=== PATIENT | female | born 1990 | race Caucasian/White ===

== ENCOUNTER 2025-05-02 15:56 | Emergency (ER) | payer OTHER, SELFPAY ==
--- OUTSIDE RECORDS SUMMARY | 2025-01-28 10:30 | XMS_ITS ---
Author Organization [facility] Address [address] [place] [address] Care Team Providers Care Flaking Roll Operator Name Role Phone Roxana Rangel Primary Care Provider [phone] Trina Francois [phone] REASON FOR VISIT APRO Encounters Encounter Location Date Provider Diagnosis [facility] [address] [place] [address] 01/28/2025 Trina Alessandro Plan Of Treatment Next Appt Details Provider Name:Rose Mcneill, 08/16/2025 03:15:00 PM, [address] [place] [address], [phone], Progress Notes * NICKO CENTENO LDOB:[birth year] (34 yo F)Acc No.[id number]:01/28/2025 Patient: NICKO RAYMOND Provider: Papo Francois :1990 A ge:34 Y S ex:Female Date:01/28/2025 Address:[address] [id number] Pcp:Roxana Walton Subjective: * Chief Complaints: * 1 . APRO. * Medical History: Objective: * Vitals: Assessment: Plan: * Treatment: * Images: * Electronic signature of Elia Francois on 05/02/2025 at 04:07 PM EDT Sign off status: Pending * Provider: Papo Francois Date: 0 01/28/2025 Generated for Davide villarreal/Harleen/Onelia on: 0 05/02/2025 04:07 PM EDT
--- OUTSIDE RECORDS SUMMARY | 2025-04-21 08:30 | XMS_ITS | Encounter Summary ---
Author Organization [facility] Address [address] [place] [address] Care Team Providers Care Financial Compliance Manager Name Role Phone DiazNinfa Mackenzie ARREGUIN Primary Care Provider + [phone] Sintia Gilbert Unavailable Unavailable Susie Kohli PA-C Unavailable [phone] Steve Chawla MD Unavailable [phone] Source Comments In the event this information is protected by the Federal Confidentiality of Alcohol and Drug AbusePatient Records regulations: The Federal rules restrict any use of the information to criminally investigate or prosecute any alcohol or drug abuse patient.[facility] Reason for Referral * MRI/CT (Routine) - Pending Review Specialty Diagnoses / Procedures Referred By Contac t Referred To Contact MR IMAGING Diagnoses History of lymphoma Procedures MRI PEL ENTEROG WO/W IVCON MRI PELVIS W/O & W/CONTRAST MATERIAL Steve Chawla MD [address] [place] [address] [place] [address] Phone: tel: fax: [place] [address] Referral ID Status Reason Start Date Expiration Date Visits Requested Visits Authorized [id number] Pending Review Auto-Generat ed Referral 05/21/2025 05/21/2026 1 1 * MRI/CT (Routine) - Pending Review Specialty Diagnoses / Procedures Referred By Rogelio moctezuma Referred To Contact MR IMAGING Diagnoses History of lymphoma Procedures MRI ABD ENTEROG WO/W IVCON MRI ABDOMEN W/O & W/CONTRAST MATERIAL MRI PELVIS W/O & W/CONTRAST MATERIAL Steve Chawla MD [address] [facility] [place] [address] Phone: tel: fax: [place] [address] Referral ID Status Reason Start Date Expiration Date Visits Requested Visits Authorized [id number] Pending Review Auto-Generat ed Referral 05/21/2025 05/21/2026 1 1 * MRI/CT (Routine) - Pending Review Specialty Diagnoses / Procedures Referred By Rogelio moctezuma Referred To Contact CT IMAGING Diagnoses History of lymphoma Procedures CT CHEST WO IVCON DIAGNOSTIC COMPUTED TOMOGRAPHY THORAX W/O CNTRST Steve Chawla MD [address] [facility] [place] [address] Phone: tel: fax: [place] [address] Referral ID Status Reason Start Date Expiration Date Visits Requested Visits Authorized [id number] Pending Review Auto-Generat ed Referral 07/22/2025 05/21/2026 1 1 Reason for Visit * Reason Comments History of lymphoma Encounter Details Date Type Department Care Team (Latest Contact Info) Description 04/21/2025 8:30 AM EDT Visit (SP) Office Hematology/Oncology [address] [place] [address] Steve Chawla MD [address] [place] [address] History of lymphoma (Primary Dx) Social History Tobacco Use Types Packs/Day Years Used Date Smoking Tobacco: Former Cigarettes Passive Smoke Exposure: Past Smokeless Tobacco: Never Alcohol Use Standard Drinks/Week Comments Not Currently 0 (1 standard drink = 0.6 oz pur e alcohol) PHQ-2 Answer Date Recorded PHQ-2 score 0 03/17/2024 Area Deprivation Index Answer Date Tyson rded National Score (1-100), lower number is lower ri sk 80 03/18/2023 State Score (1-10), lower number is lower risk 7 03/18/2023 Data from: https://www.neighborhoodatlas.[facility]/. Last address used for calculation [address] 03/18/2023 Comments No Sex and Gender Information Value Date Recorded Sex Assigned at Not on file Legal Sex Female 4:43 PM EST Gender Identity Not on file Sexual Orientation Not on file documented as of this encounter Last Filed Vital Signs Vital Sign Reading Time Taken Comments Blood Pressure 126/83 04/21/2025 8:21 AM EDT Pulse 66 04/21/2025 8:21 AM EDT Temperature 36.3 C (97.4 F) 04/21/2025 8:21 AM EDT Respiratory Rate 16 04/21/2025 8:21 AM EDT Oxygen Saturation 98% 04/21/2025 8:21 AM EDT Inhaled Oxygen Concentration - - Weight 105.7 kg (233 lb 0.4 oz) 04/21/2025 8:21 AM EDT Height - - Body Mass Index 39.98 03/18/2025 8:44 AM EDT documented in this encounter Patient Instructions * Patient Instructions* Steve Chawla MD - 04/21/2025 8:[address] Chest Ordered MR enterography F/u with METROLOGY MANAGER F/u in 3 months documented in this encounter Progress Notes * Steve Chawla MD - 04/21/2025 8:30 AM EDT Images from the original note were not included. PATIENT NAME: Estefany [facility] NO.: [id number] ATTENDING PHYSICIAN: Steve Chawla MD DATE OF SERVICE: 04/21/25 Some of the elements of this note have been copied from my previous progress note dated 09/29/24. All the information has been reviewed carefully Diagnosis: Stage 2 ALK positive - ALCL Treatment History: ECHO 11/2022: 2. BV-CHP- 12/24/2022-04/08/2023 ( 6 cycles) HPI: Estefany Wu is a 33 year old year old female here for follow up. Doing well and denies any new complaints Visit 09/28/24: - Doing well - C/o lymphedema in Left LE - C/o URTI. - She has 1 child. 04/21/25: - CT chest (04/14/25)- No significant thoracic adenopathy. 2. New 7 mm nodular density in the posterior right upper lobe of the lungs. This is nonspecific. Would advise a short-term 3 month follow-up chest CT without contrast to reassess the nodule - CT A/P (04/14/25)- No significant abdominal or pelvic lymphadenopathy. No splenomegaly or splenic lesion. 2. Intrauterine device is present. This is new when compared to the prior exam. The crossbars appear directed towards the lower uterine segment. This raises the possibility of malposition of the intrauterine device. Additionally, within the left adnexa, there is a nonspecific 3.6 x 2.7 cm septated cyst. Would advise further evaluation with pelvic ultrasound at this time to assess for the position of the intrauterine device and also to better assess the left adnexal cystic lesion. Would also advise gynecology referral given the suspected position of the intrauterine device. 3. Along the distal and terminal ileum, there is an 8 cm long contiguous segment of small bowel bowel which demonstrates questionable mild mucosal thickening mucosal hyperenhancement. The possibility of this being secondary to enteritis or other causes of mild mucosal thickening cannot be excluded. Would advise further evaluation with MR enterography - Doing well - Sees a sales and marketing vice president. - Works as a direct support professional caregiver for seniors. 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, unspecified site (HCC) Migraine PMDD (premenstrual dysphoric disorder) TMJ disorder Social History Tobacco Use Smoking status: Former Types: Cigarettes Passive exposure: Past Smokeless tobacco: Never Vaping Use Vaping status: Former Substances: Nicotine, Flavoring Devices: Refillable tank Substance Use Topics Alcohol use: Not Currently Drug use: Yes Types: Marijuana FAMILY HISTORY Problem Relation Age of Onset Thyroid Mother Hypertension Mother Diabetes Father Pancreatitis Father Hypertension Maternal Grandmother Hypertension Maternal Grandfather Breast Cancer Paternal Grandmother Hypertension Paternal Grandfather Diabetes Paternal Grandfather Cancer Paternal Grandfather Pancreatic Cancer Paternal great-grandmother Past medical, social and family history reviewed without any changes. REVIEW OF SYSTEMS GENERAL: No weight loss, malaise or fevers. No night sweats. HEENT: Negative for headaches, No changes in hearing or vision, no nose bleeds or other nasal problems. RESPIRATORY: Negative for cough, wheezing and shortness of breath CARDIOVASCULAR: Negative for chest pain, leg swelling and palpitations GI: Negative for abdominal discomfort, blood in stools or black stools and change in bowel habits : Negative for dysuria, frequency and incontinence MUSCULOSKELETAL: Negative for joint pain or swelling, back pain, and muscle pain. SKIN: Negative for lesions, rash, and itching. HEMATOLOGY/LYMPHOLOGY Negative for prolonged bleeding, bruising easily, and swollen nodes. NEURO: Negative for numbness or tingling of hands/feet. No weakness. PHYSICAL EXAMINATION: BP 126/83 Pulse 66 Temp (Src) 97.4 (Temporal) Resp 16 Wt 233 lb 0.4 oz (105.7kg) SpO2 98% LMP 11/24/2024 Wt 89.8 kg (198 lb) BMI 33.99 kg/m2 Last 3 Encounter Wt Readings: Date: Wt: 12/17/2022 89.8 kg (198 lb) 12/05/2022 92.9 kg (204 lb 12.8 oz) General appearance:ECOG PERFORMANCE STATUS: 1- Restricted in physically strenuous activity. Carries out light duty. Patient in NAD. Skin: Skin color, texture, turgor normal. No rashes or lesions. Eyes: Anicteric sclera. Pupils are equally round and reactive to light. Extraocular movements are intact. Lymph Nodes: No cervical, supraclavicular, axillary or inguinal adenopathy. Oropharynx: Lips, mucosa, and tongue normal. Back: No pain to percussion. Negative SLR test Lungs clear to auscultation, No wheezing or rhonchi Heart: RRR without murmur, gallop, or rubs. Abdomen soft, non-tender. No masses, organomegaly Extremities: No deformities. No edema Neuro: Gait and speech normal. Reflexes normal and symmetric. Muscular strength intact. Sensation grossly intact. Rectal: Deferred : Deferred LABS: Glucose (mg/dL) Date Value 04/14/2025 90 Potassium (mmol/L) Date Value 04/14/2025 4.3 Sodium (mmol/L) Date Value 04/14/2025 138 Chloride (mmol/L) Date Value 04/14/2025 105 CO2 (mmol/L) Date Value 04/14/2025 20 Creatinine (mg/dL) Date Value 04/14/2025 0.60 BUN (mg/dL) Date Value 04/14/2025 10 Anion Gap (mmol/L) Date Value 04/14/2025 13 Calcium, Total (mg/dL) Date Value 04/14/2025 9.1 Protein, Total (g/dL) Date Value 04/14/2025 6.7 Albumin (g/dL) Date Value 04/14/2025 4.1 Bilirubin, Total (mg/dL) Date Value 04/14/2025 0.5 Alkaline Phosphatase (U/L) Date Value 04/14/2025 72 AST (U/L) Date Value 04/14/2025 24 ALT (U/L) Date Value 04/14/2025 26 WBC Date Value Ref Range Status 04/14/2025 5.89 3.70 - 11.00 k/uL Final RBC Date Value Ref Range Status 04/14/2025 4.81 3.90 - 5.20 m/uL Final Hemoglobin Date Value Ref Range Status 04/14/2025 13.6 11.5 - 15.5 g/dL Final Hematocrit Date Value Ref Range Status 04/14/2025 41.1 36.0 - 46.0 % Final MCV Date Value Ref Range Status 04/14/2025 85.4 80.0 - 100.0 fL Final MCH Date Value Ref Range Status 04/14/2025 28.3 26.0 - 34.0 pg Final MCHC Date Value Ref Range Status 04/14/2025 33.1 30.5 - 36.0 g/dL Final RDW-CV Date Value Ref Range Status 04/14/2025 13.8 11.5 - 15.0 % Final Platelet Count Date Value Ref Range Status 04/14/2025 232 150 - 400 k/uL Final MPV Date Value Ref Range Status 04/14/2025 11.4 9.0 - 12.7 fL Final Abs Neut Date Value Ref Range Status 04/14/2025 3.74 1.45 - 7.50 k/uL Final Lymphocytes % Date Value Ref Range Status 04/14/2025 25.3 % Final Abs Lymph Date Value Ref Range Status 04/14/2025 1.49 1.00 - 4.00 k/uL Final Monocytes % Date Value Ref Range Status 04/14/2025 7.3 % Final Abs Fillmore Date Value Ref Range Status 04/14/2025 0.43 <0.87 k/uL Final Eosin% Date Value Ref Range Status 12/31/2022 14.0 % Final Abs Eosin Date Value Ref Range Status 04/14/2025 0.17 <0.46 k/uL Final Basophils % Date Value Ref Range Status 04/14/2025 0.7 % Final Abs Baso Date Value Ref Range Status 04/14/2025 0.04 <0.11 k/uL Final PATH: LN Biopsy 11/2022: A. Left inguinal lymph nodes #1 and #2, excisional biopsy (Submitted parts A and B): - Anaplastic large cell lymphoma, ALK positive - Small, atypical B-cell population identified by flow cytometry only - See comment Diagnosis Comment The patient is a 32-year-old female presenting with a left inguinal mass. Histologic sections demonstrate markedly enlarged lymph node with a lymphoma infiltrate with predominantly intra-sinusoidal pattern. The neoplastic cells are large with ovoid/round to irregular nuclei with dispersed chromatin and prominent often multiple nucleoli. A subset show multiple nucleoli orhorseshoe- shaped nuclei. They have increased, eosinophilic cytoplasm. Focal areas of residual lymphoid architecture are appreciated with reactive germinal centers. Submitted immunohistochemical stains are reviewed. The atypical cells are positive for CD30, CD45 and Ki-67. They are negative for AE1/AE3 cytokeratin, BCL2, BCL6, CD3, CD5, CD10, CD20, cyclin D1, HMB45, MART1, S100 and PAX5. The stains for CD21 and CD23 highlight background residual dendritic meshworks. Additional immunohistochemical stains have been performed at [facility] with appropriately staining controls. The neoplastic cells are positive for ALK with nuclear and cytoplasmic pattern and for MUM1. Chromogenic in-situ hybridization with probes for Gurpreet-Chatman virus (EBV)-encoded small RNA (TESSA) is negative. Per report, flow cytometry in part A demonstrated a small population of atypical B cells with a kappa light chain skew, suspicious for a B-cell lymphoproliferative disorder. These B cells were negative for CD5, CD10 and CD11c. However, the specimen it was limited by decreased viability (less than 80 %). 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 The significance of the abnormal population identified by flow cytometry only is unclear, it may represent a reactive process. Correlation with the clinical and radiologic findings is recommended. Imaging: PET 12/2022: 1. HEAD and NECK: No evidence of focal uptake to suggest FDG avid neoplastic process.. 2. CHEST: No evidence of focal uptake to suggest FDG avid neoplastic process.. 3. ABDOMEN/PELVIS: FDG avid retroperitoneal and pelvic lymphadenopathy is consistent with lymphomatous involvement. 4. EXTREMITIES/SKELETON: No evidence of focal uptake to suggest FDG avid neoplastic process.. *Deauville Criteria Score: 5 PET Scan 03/2023: 1. Neck: No suspicious hypermetabolic foci 2. Chest: No evidence of FDG avid neoplastic process 3. Abdomen and pelvis: No evidence of FDG avid neoplastic process 4. Skeleton: Mild diffuse marrow uptake likely posttherapy effect. Deauville criteria score: 1 PET Scan 05/2023: Head and Neck: * No evidence of FDG avid neoplastic process Chest: * No evidence of FDG avid neoplastic process Abdomen and pelvis: * No new/worsening FDG avid lymphadenopathy * New diffuse uptake in the gastric fundus is likely physiologic or due to gastritis, although lymphomatous/neoplastic involvement is not entirely excluded. Further evaluation with EGD and/or follow-up imaging, as clinically indicated. Musculoskeletal: * No neoplastic hypermetabolic lesions CT Scan of the Chest and Abdomen and Pelvis 08/2023: 1. 5 mm noncalcified nodule within the left lower lobe, not clearly appreciated on prior study, however, this may be on the basis of differences in technique. Correlation with continued follow-up examinations is recommended. 2. No substantial intrathoracic adenopathy is identified. 1. Several mildly prominent right lower quadrant mesenteric lymph nodes are identified, more conspicuous when compared to the prior PET/CT examination of 05/14/2023. Correlation with continued follow-up examinations is recommended. 2. Minimally prominent left external iliac lymph node, decreased in size from the prior study. CT Scan of the Chest and Abdomen and Pelvis 03/2024: No thoracic lymphadenopathy by size criteria. No lymphadenopathy in the abdomen or pelvis by size criteria. Assessment and Plan: 1. History of lymphoma - ICD9: V10.79, ICD10: Z85.72 Estefany Wu is a 33 year old year old female here for follow up. Stage II, Low IPI, ALK positive ALCL- Discussed that based on the ECHELON-2 trial BV-CHP is the standard of care. Imaging after 4th cycle in CR, completed 6 cycles of therapy 04/08/2023 and PET 05/2023with CR she has diffuse gastric uptake which is new and not likley related to lymphoma, however shehad an EGD 05/2023 with minimal possible gastritis otherwise negative. CT 03/2024 without progression - CT chest on 04/14/25 showed New 7 mm nodular density in the posterior right upper lobe of the lungs. This is nonspecific. Would advise a short-term 3 month follow-up chest CT without contrast to reassess the nodule. Ordered repeat CT chest. - CT A/P on 04/14/25 showed Along the distal and terminal ileum, there is an 8 cm long contiguous segment of small bowel bowel which demonstrates questionable mild mucosal thickening mucosal hyperenhancement. The possibility of this being secondary to enteritis or other causes of mild mucosal thickening cannot be excluded. Would advise further evaluation with MR enterography. Ordered MR enterography. - Advised her to f/u with METROLOGY MANAGER for pelvic USG. - Recent blood work is unremarkable. - F/u with PCP and other consultants. F/u in 3 months Thank you for the kind referral. If there are any questions and or concerns please do not hesitate to contact me at [phone]. Steve Chawla MD Hematology/Medical Oncology [facility] spent a total of 30 minutes on the date of the service which included preparing to see the patient, [id number] patient care, completing clinical documentation, obtaining and/or reviewing separately obtained history, counseling and educating the patient/family/caregiver, ordering medications, addie ts, or procedures, and communicating with other HCPs (not separately reported) CC: MD Ninfa Garcia, DO documented in this encounter Plan of Treatment Upcoming Encounters Date Type Department Care Team (Late st Contact Info) Description 06/21/2025 9:00 AM EDT Appointment MRI Q [address] [address] MRI ABD ENTEROG WO/W IVCON 06/21/2025 10:30 AM EDT Appointment MRI Q [address] [address] MRI ABD ENTEROG WO/W IVCON 07/14/2025 7:45 AM EDT Appointment Radiology Pet CT [address] [place] [address] Ct Chest without contrast 07/19/2025 9:30 AM EDT Visit (SP) Office Hematology/Oncolog y [address] [place] [address] Steve Chawla MD [address] [facility] [place] [place] [address] 3 month follow up 03/31/2026 10:00 AM EDT Office Visit CB/Gynecology [address] [place] [address] Sebastien Chan MD [address] [address] annual & pap Scheduled Orders Name Type Priority Associated Diagnoses Orde r Schedule CT CHEST WO IVCON Radiology Routine History of lymphoma Expected: 07/22/2025 (Approximate), Expires: 05/21/2026 MRI ABD ENTEROG WO/W IVCON Radiology Routine History of lymphoma Expected: 05/21/2025 (Approximate), Expires: 05/21/2026 MRI PEL ENTEROG WO/W IVCON Radiology Routine History of lymphoma Expected: 05/21/2025 (Approximate), Expires: 05/21/2026 documented as of this encounter Visit Diagnoses Diagnosis History of lymphoma- Primary Personal history of other lymphatic and hematopoietic neoplasm documented in this encounter Care Teams Financial Compliance Manager Relationship Specialty Start Date End Date Ninfa Diaz DO [place] [address] [facility] [address] [place] [address] PCP - General Family Medicine 12/05/22 Sintia Gilbert LSW Founder & Ceo 12/19/22 Susie Kohli, PA-C [address] [facility] [facility] [place] [address] Physician Saturator Hematology/Oncology 12/23/22 Steve Chawla MD [address] [place] [address] [place] [address] Physician Hematology/Oncology 09/29/24 documented as of this encounter
--- OUTSIDE RECORDS SUMMARY | 2025-05-02 16:07 | XMS_ITS | Encounter Summary ---
Author Organization [facility] Address [address] [place] [address] Care Team Providers Care Agricultural Produce Packer Name Role Phone Ninfa Diaz Primary Care Provider + [phone] Sintia Gilbert Unavailable Unavailable Susie Kohli PA-C Unavailable [phone] Steve Chawla MD Unavailable [phone] Source Comments In the event this information is protected by the Federal Confidentiality of Alcohol and Drug AbusePatient Records regulations: The Federal rules restrict any use of the information to criminally investigate or prosecute any alcohol or drug abuse patient.[facility] Encounter Details Date Type Department Care Team (Late st Contact Info) Description 05/02/2025 Patient Msg CB/Gynecology [address] [place] [address] Sebastien Chan MD [address] [address] Appointment Request Social History Tobacco Use Types Packs/Day Years [...] is lower risk 7 03/18/2023 Data from: https://www.neighborhoodatlas.medicine.[facility]/. Last address used for calculation [address] 03/18/2023 Comments No Sex and Gender Information Value Date Recorded Sex Assigned at Not on file Legal Sex Female 4:43 PM EST Gender Identity Not on file Sexual Orientation Not on file documented as of this encounter Plan of Treatment Upcoming Encounters Date Type Department Care Team ([facility] st Contact Info) Description 06/21/2025 9:00 AM EDT Appointment MRI Q [address] [address] MRI ABD ENTEROG WO/W IVCON 06/21/2025 10:30 AM EDT Appointment MRI Q [address] [address] MRI ABD ENTEROG WO/W IVCON 07/14/2025 7:45 AM EDT Appointment Radiology Pet CT [address] [place] [address] Ct Chest without contrast 07/19/2025 9:30 AM EDT Visit (SP) Office Hematology/Oncolog y [address] [place] [address] Steve Chawla MD [address] [place] [address] 3 month follow up 03/31/2026 10:00 AM EDT Office Visit CB/Gynecology [address] [place] [address] Sebastien Chan MD [address] [facility] [address] [place] [address] annual & pap documented as of this encounter Visit Diagnoses Not on filedocumented in this encounter Care Teams Agricultural Produce Packer Relationship Specialty Start Date End Date Ninfa Diaz DO [facility] [place] [address] PCP - General Family Medicine 12/05/22 Sintia Gilbert LSW Collection Systems Administrator 12/19/22 Susie Kohli PA-C [address] [place] [address] Physician Dog Hair Clipper Hematology/Oncology 12/23/22 Steve Chawla MD [address] [place] [address] Physician Hematology/Oncology 09/29/24 documented as of this encounter
--- OUTSIDE RECORDS SUMMARY | 2025-05-02 16:07 | XMS_ITS | Clinical Summary ---
Author Organization [facility] Address [address] [place], [place] [id number] Care Team Providers Care Ticket Taker Name Role Phone Ninfa Diaz Primary Care Provider + [phone] Sintia Gilbert Unavailable Unavailable Susie Kohli PA-C Unavailable [phone] Steve Chawla MD Unavailable [phone] Allergies Active Allergy Reactions Criticality Noted Date Comments Penicillins Anaphylaxis,Hives,Swelling 11/08/20 22 Medications iv contrast (will be provided with radiology test)Indicatio ns:History of lymphoma CT Chest ABD/PEL-Inject, intravenously, once for 1 dose.No IV access, insert saline lock prior to the beginning of sedation, infusion, injection of imaging exam. Discontinue saline lock post exam. If Pt. has a central line or IVAD, may access for administration according to line specific nursing protocol. Once exam is complete flush line and de-access according to line specific nursing protocol in the CT contrast administration guidelines link. 1 Each 09/29/20 24 Active enteric contrast (will be provided with radiology test)Indicatio ns:History of lymphoma For CT CHESTABD/PEL W IVCON Routine order Administer, As Directed One Time Only, via Oral, Rectal, both Oral and Rectal, Enteric Tube, Stoma or Indwelling Catheter, Enteric Contrast as designated per enteric contrast guidelines 1 Each 09/29/20 24 Active iv contrast (will be provided with radiology test) CT Chest ABD/PEL-Inject, intravenously, once for 1 dose.No IV access, insert saline lock prior to the beginning of sedation, infusion, injection of imaging exam. Discontinue saline lock post exam. If Pt. has a central line or IVAD, may access for administration according to line specific nursing protocol. Once exam is complete flush line and de-access according to line specific nursing protocol in the CT contrast administration guidelines link. 1 each 02/16/20 25 Active enteric contrast (will be provided with radiology test) For CT CHESTABD/PEL W IVCON Routine order Administer, As Directed One Time Only, via Oral, Rectal, both Oral and Rectal, Enteric Tube, Stoma or Indwelling Catheter, Enteric Contrast as designated per enteric contrast guidelines 1 each 02/16/20 25 Active glucagon (GLUCAGEN) 1 mg/mL injection Inject 1 mg intravenously one time only for 1 dose. For MRI Enterography, Inject 1 mg intravenously, as directed. Slow push at the appropriate time during MRI Scan each 04/21/20 Active iv contrast (will be provided with radiology test) MRI Enterography Inject, intravenously, once for 1 dose. No IV access, insert saline lock prior to the beginning of sedation, infusion, injection of imaging exam. Discontinue saline lock post exam. If Pt. has a central line or IVAD, may access for administration according to line specific nursing protocol. Once exam is complete flush line and de-access according to line specific nursing protocol in the MR contrast administration guidelines link. 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 Resolved Problems Problem Noted Date Diagnosed Date Resolved Date Dyspepsia and disorder of function of stomach 05/21/2005/21/2023 Epigastric pain 05/21/2023 05/21/2023 Encounters Date Type Department Care Team Description 05/02/2025 Telephone OB/Gynecology [address] [place] [address] Sebastien Chan MD 05/02/2025 Patient Msg CB/Gynecology [address] [place] [address] Sebastien Chan MD Appointment Request 04/21/2025 8:30 AM EDT Visit (SP) Office Hematology/Oncology [address] [place] [address] [place] [address] Steve Chawla MD History of lymphoma (Primary Dx) 04/21/2025 Travel 04/15/2025 Patient Msg Pulmonary Medicine [id number] Result Notification 04/14/2025 8:10 AM EDT - 04/14/2025 11:59 PM EDT Hospital Encounter Radiology Pet CT [address] [place] [address] [place] [address] History of lymphoma [Z85.72] Discharge Disposition: Home 04/14/2025 Travel 03/18/2025 9:00 AM EDT Office Visit CB/Gynecology [address] [place] [address] [place] [address] Sebastien Chan MD Encounter for gynecological examination (general) (routine) without abnormal findings (Primary Dx); Encounter for routine checking of intrauterine contraceptive device; IUD (intrauterine device) in place; Screen for STD (sexually transmitted disease) 02/15/2025 Telephone Hematology/Oncology [address] [place] [address] [place] [address] Sona Stallings RN Orders 02/04/2025 10:30 AM EDT Office Visit CB/Gynecology [address] [place] [address] [place] [address] Sebastien Chan MD IUD (intrauterine device) in place (Primary Dx); Encounter for routine checking of intrauterine contraceptive device 02/04/2025 Travel from Last 3 Months Family History Medical History Relation Comments Diabetes Father Pancreatitis Father Hypertension Maternal Grandfather Hypertension Maternal Grandmother Hypertension Mother Thyroid Mother Cancer Paternal Grandfather Diabetes Paternal Grandfather Hypertension Paternal Grandfather Breast Cancer Paternal Grandmother Pancreatic Cancer Paternal great-grandmother Relation Status Comments Father Alive Maternal Grandfather Maternal Grandmother Mother Alive Paternal Grandfather Paternal Grandmother Paternal great-grandmother Alive Social History Tobacco Use Types Packs/Day Years [...] is lower risk 7 03/18/2023 Data from: https://www.neighborhoodatlas.medicine.[facility].edu/. Last address used for calculation [address] 03/18/2023 Comments No Sex and Gender Information Value Date Recorded Sex Assigned at Not on file Legal Sex Female 4:43 PM EST Gender Identity Not on file Sexual Orientation Not on file Last Filed Vital Signs Vital Sign Reading Time Taken Comments Blood Pressure 126/83 04/21/2025 8:21 AM EDT Pulse 66 04/21/2025 8:21 AM EDT Temperature 36.3 C (97.4 F) 04/21/2025 8:21 AM EDT Respiratory Rate 16 04/21/2025 8:21 AM EDT Oxygen Saturation 98% 04/21/2025 8:21 AM EDT Inhaled Oxygen Concentration - - Weight 105.7 kg (233 lb 0.4 oz) 04/21/2025 8:21 AM EDT Height 162.6 cm (5' 4.02 ) 03/18/2025 8:44 AM ED T Body Mass Index 39.98 03/18/2025 8:44 AM EDT Plan of Treatment Upcoming Encounters Date Type Department Care Team (Late st Contact Info) Description 06/21/2025 9:00 AM EDT Appointment MRI Q [address] [address] MRI ABD ENTEROG WO/W IVCON 06/21/2025 10:30 AM EDT Appointment MRI Q [address] [address] MRI ABD ENTEROG WO/W IVCON 07/14/2025 7:45 AM EDT Appointment Radiology Pet CT [address] [place] [address] [place] [address] Ct Chest without contrast 07/19/2025 9:30 AM EDT Visit (SP) Office Hematology/Oncolog y [address] [place] [address] Steve Chawla MD [address] [place] [address] 3 month follow up 03/31/2026 10:00 AM EDT Office Visit CB/Gynecology [address] [place] [address] Sebastien Chan MD [address] [facility] [address] [place] [address] annual & pap Health Maintenance Due Date Last Done Comments Covid-19 Vaccine (#1) 1996 Anxiety Screening 2009 Depression Screening 2009 DTaP,Tdap,Td Vaccine (1 - Tdap) 2010 Hepatitis B Vaccine (1 of 3 - 19+ 3-dose series) 05/27 Pneumococcal Vaccine (1 of 2 - PCV) 2010 Shingrix Vaccine (1 of 2) 2010 Influenza Vaccine (Season Ended) 2025 Cervical Cancer Screening 02/24/2027 02/25/2024 HIV Screening Completed 12/17/2022 Hepatitis C Screening Completed 12/17/2022 Procedures Procedure Name Priority Date/Time Associated Diagnosis Comments CT CHEST W IVCON Routine 04/14/2025 9:20 AM EDT History of lymphoma CT ABD/PEL W IVCON Routine 04/14/2025 9: 20 AM EDT History of lymphoma LD LACTATE DEHYDRO Routine 04/14/2025 8: 19 AM EDT History of lymphoma COMPREHENSIVE METABOLIC PANEL Routine 04/14/2025 8:19 AM EDT History of lymphoma CBC + DIFF Routine 04/14/2025 8:19 AM EDT History of lymphoma GONORRHEA/CHLAMYDIA NAAT Routine 03/18/2025 9:24 AM EDT Screen for STD (sexually transmitted disease) BACTERIAL VAGINOSIS NAAT Routine 03/18/2025 9:24 AM EDT Screen for STD (sexually transmitted disease) DIANELYS/TRICHOMONAS NAAT Routine 03/18/2025 9:24 AM EDT Screen for STD (sexually transmitted disease) PAP TEST Routine 02/25/2024 11:56 AM EDT Encounter for gynecological examination (general) (routine) without abnormal findings Encounter for screening for malignant neoplasm of cervix HIV 1/2 COMBO WITH REFLEX TO DIFFERENTIATION Routine 12/17/2022 9:27 AM EST Diffuse large B-cell lymphoma of lymph nodes of inguinal region (HCC) HEPATITIS C ANTIBODY IA WITH CONFIRMATION Routine 12/17/2022 9:27 AM EST Diffuse large B-cell lymphoma of lymph nodes of inguinal region (HCC) from Last 3 Months or Most Recently Relevant to Health Maintenance Results * (ABNORMAL) CT ABD/PEL W IVCON (04/14/2025 9:20 AM EDT) Radiology Result ACTIONABLE (Actionabl e) DIVISION OF RADIOLOGY Comment: This report contains an incidental or actionable finding. This finding may be a new finding separate from the reason your provider ordered the imaging test or it may be an already known finding that needs additional or continued follow-up. Because of this incidental or actionable finding, you may need another test (imaging or a different type of test). Please contact your provider for the next steps. Anatomical Region Laterality Modality Abdomen Nuclear Medicine , Nuclear Medicine 04/14/2025 9:20 AM EDT Impressions 04/14/2025 12:01 PM EDT IMPRESSION: 1. No significant abdominal or pelvic lymphadenopathy. No [...] Would advise further evaluation with MR enterography ACTIONABLE RESULT: FOLLOW-UP Acuity: Actionable Findings: Female reproductive tract (pelvis, adnexa) Routing code: [email or web address] Recommendation: Unlisted Recommendation (see report) Time Frame: as soon as possible, when the patient's clinical state allows. COMMUNICATION: Results will be communicated with the ordering provider via [employer] staff message or phone message by [facility] within 2 business days of report finalization. --END OF FINDING-- Acuity: Actionable Findings: Digestive Tract Routing Code: GI_1 Recommendation: Unlisted Recommendation (see report) TimeFrame: 4-6 weeks --END OF FINDING-- Algorithms for management of incidental imaging findings can be found on the [facility] Intranet Sharepoint site at: [email or web address]%20Incidental%20Findi ngs%20at%20Imaging/Forms/[email or web address].aspx Transcribe Date/Time: Apr 14 2025 11:46A Dictated by: MYNOR NORWOOD MD This examination was interpreted and the report reviewed and electronically signed by: MYNOR NORWOOD MD on Apr 14 2025 11:59AM EST Thank you for allowing us to participate in the care of your patient. Should there be any questions regarding this interpretation, please call [phone]. If you are unable to reach us at the number above, please feel free to contact [facility] at [phone]. Narrative 04/14/2025 12:01 PM EDT * * *Final Report* * * DATE OF EXAM: Apr 14 2025 9:20AM [facility] 0530 - CT ABD/PEL W IVCON / PROCEDURE REASON: History of lymphoma * * * * Physician Interpretation * * * * RESULT: EXAMINATION: CT ABDOMEN AND PELVIS WITH IV CONTRAST CLINICAL HISTORY: History of lymphoma. TECHNIQUE: CT of the abdomen and pelvis was performed using standard technique, scanning from just above the dome of the diaphragm to the symphysis pubis. MQ: CTAP_3 Contrast: IV: 100 ml of Omnipaque 350 Oral: 500 ml of Omni 240 10-25ml diluted with water CT Radiation dose: Integrated Dose-length product (DLP) for this visit = 1517 mGy*cm. CT Dose Reduction Employed: mAs-kVp adjusted based on patient size-age COMPARISON: CT of the abdomen and pelvis with contrast from 10/14/2024 RESULT: Liver: No mass. Biliary: No bile duct dilation. Gallbladder is unremarkable. Spleen: No mass. No splenomegaly. Pancreas: No mass or duct dilation. Adrenals: No mass. Kidneys: Unremarkable. GI tract: No small bowel obstruction. Along the distal and terminal ileum, there is an 8 cm long segment of bowel which demonstrates questionable mild mucosal thickening mucosal hyperenhancement. This is seen on slices 39-43 of series 4. The possibility of this being secondary to enteritis or other causes of mild mucosal thickening cannot be excluded. Would advise further evaluation with MR enterography. Lymph nodes: No significant abdominal or pelvic lymphadenopathy by size criteria. There are stable small subcentimeter mesenteric lymph nodes in the right lower quadrant Mesentery/Peritoneum: No ascites or mass. Pelvis: Intrauterine device is present. This is new [...] the suspected position of the intrauterine device. Bones/Soft Tissues: No significant finding. Lower thorax: A chest CT performed will be reported separately. Localizer images: No additional findings. Procedure Note Provider, [facility] [place] - 04/14/2025 * * *Final Report* * * DATE OF EXAM: Apr 14 2025 9:20AM [facility] 0530 - CT ABD/PEL W IVCON / PROCEDURE REASON: History of lymphoma * * * * Physician Interpretation * * * * RESULT: EXAMINATION: CT ABDOMEN AND PELVIS WITH IV CONTRAST CLINICAL HISTORY: History of lymphoma. TECHNIQUE: CT of the abdomen and pelvis was performed using standard technique, scanning from just above the dome of the diaphragm to the symphysis pubis. MQ: CTAP_3 Contrast: IV: 100 ml of Omnipaque 350 Oral: 500 ml of Omni 240 10-25ml diluted with water CT Radiation dose: Integrated Dose-length product (DLP) for this visit = 1517 mGy*cm. CT Dose Reduction Employed: mAs-kVp adjusted based on patient size-age COMPARISON: CT of the abdomen and pelvis with contrast from 10/14/2024 RESULT: Liver: No mass. Biliary: No bile duct dilation. Gallbladder is unremarkable. Spleen: No mass. No splenomegaly. Pancreas: No mass or duct dilation. Adrenals: No mass. Kidneys: Unremarkable. GI tract: No small bowel obstruction. Along the distal and terminal ileum, there is an 8 cm long segment of bowel which demonstrates questionable mild mucosal thickening mucosal hyperenhancement. This is seen on slices 39-43 of series 4. The possibility of this being secondary to enteritis or other causes of mild mucosal thickening cannot be excluded. Would advise further evaluation with MR enterography. Lymph nodes: No significant abdominal or pelvic lymphadenopathy by size criteria. There are stable small subcentimeter mesenteric lymph nodes in the right lower quadrant Mesentery/Peritoneum: No ascites or mass. Pelvis: Intrauterine device is present. This is new [...] the suspected position of the intrauterine device. Bones/Soft Tissues: No significant finding. Lower thorax: A chest CT performed will be reported separately. Localizer images: No additional findings. IMPRESSION IMPRESSION: 1. No significant abdominal or pelvic lymphadenopathy. No [...] Would advise further evaluation with MR enterography ACTIONABLE RESULT: FOLLOW-UP Acuity: Actionable Findings: Female reproductive tract (pelvis, adnexa) Routing code: WH_1 Recommendation: Unlisted Recommendation (see report) Time Frame: as soon as possible, when the patient's clinical stateallows. COMMUNICATION: Results will be communicated with the ordering provider via [employer] staff message or phone message by [facility] within 2 business days of report finalization. --END OF FINDING-- Acuity: Actionable Findings: Digestive Tract Routing Code: GI_1 Recommendation: Unlisted Recommendation (see report) TimeFrame: 4-6 weeks --END OF FINDING-- Algorithms for management of incidental imaging findings can be found on the [facility] Intranet Sharepoint site at: [email or web address]/documentation/[email or web address]/Managing%20Incidental%20Findi ngs%20at%20Imaging/Forms/AllItems.aspx Transcribe Date/Time: Apr 14 2025 11:46A Dictated by: MYNOR NORWOOD MD This examination was interpreted and the report reviewed and electronically signed by: MYNOR NORWOOD MD on Apr 14 2025 11:59AM EST Thank you for allowing us to participate in the care of your patient. Should there be any questions regarding this interpretation, please call [phone]. If you are unable to reach us at the number above, please feel free to contact [facility] at [phone]. us Steve Chawla MD CT-PAMA Final Res ult * (ABNORMAL) CT CHEST W IVCON (04/14/2025 9:20 AM EDT) Radiology Result ACTIONABLE (Actionabl e) DIVISION OF RADIOLOGY Comment: This report contains an incidental or actionable finding. This finding may be a new finding separate from the reason your provider ordered the imaging test or it may be an already known finding that needs additional or continued follow-up. Because of this incidental or actionable finding, you may need another test (imaging or a different type of test). Please contact your provider for the next steps. Anatomical Region Laterality Modality Chest Nuclear Medicine , Nuclear Medicine 04/14/2025 9:20 AM EDT Impressions 04/14/2025 12:12 PM EDT IMPRESSION: 1. No significant thoracic adenopathy. 2. New 7 mm nodular density in the posterior right upper lobe of the lungs. This is nonspecific. Would advise a short-term 3 month follow-up chest CT without contrast to reassess the nodule. ACTIONABLE RESULT: FOLLOW-UP Acuity: Actionable Findings: Thoracic-Lung nodules Routing code: RI_1 Recommendation: CT Chest WO IVCON Time Frame: 1-3 months COMMUNICATION: Results will be communicated with the ordering provider via [employer] staff message or phone message by [facility] within 2 business days of report finalization. --END OF FINDING-- Algorithms for management of incidental imaging findings can be found on the [facility] Intranet Sharepoint site at: [email or web address]/documentation/[email or web address]%20Incidental%20Findi ngs%20at%20Imaging/Forms/AllItems.aspx Transcribe Date/Time: Apr 14 2025 12:00P Dictated by: MYNOR NORWOOD MD This examination was interpreted and the report reviewed and electronically signed by: MYNOR NORWOOD MD on Apr 14 2025 12:10PM EST Thank you for allowing us to participate in the care of your patient. Should there be any questions regarding this interpretation, please call [phone]. If you are unable to reach us at the number above, please feel free to contact [facility] at [phone]. Narrative 04/14/2025 12:12 PM EDT * * *Final Report* * * DATE OF EXAM: Apr 14 2025 9:20AM [facility] 0539 - CT CHEST W IVCON / PROCEDURE REASON: History of lymphoma * * * * Physician Interpretation * * * * RESULT: EXAMINATION: CHEST CT WITH CONTRAST CLINICAL HISTORY: History of lymphoma. Technique: Spiral CT acquisition of the chest from the thoracic inlet to the upper abdomen following IV contrast. MQ: CTCW_6 Contrast: 100 mL Omnipaque [address] Radiation dose: Integrated Dose-length product (DLP) for this visit = 1517 mGy*cm CT Dose Reduction Employed: mAs-kVp adjusted based on patient size-age Comparison: Chest CT from 10/14/2024 RESULT: Limitations: None. Lines, tubes, and devices: None. Lung parenchyma and airways: -Stable 5 mm nodule in the lingula on slice 128 of series 4. -New 7 mm nodular density in the posterior right upper lobe, abutting the major fissure on slice 59 of series 4. Pleural space: No pleural effusion. No pleural thickening. Lower neck, lymph nodes, and mediastinum: No suspicious axillary, mediastinal, or hilar lymphadenopathy. Minimal residual thymic tissue which is stable when compared to the prior exam. Heart, pericardium, and thoracic vessels: No pericardial effusion. No significant coronary artery calcification. Bones and soft tissues: No destructive bone lesion. Chest wall is unremarkable. Upper abdomen: A CT of the abdomen and pelvis was performed and will be reported separately. Localizer images: No additional findings. Procedure Note Provider, [facility] [place] - 04/14/2025 * * *Final Report* * * DATE OF EXAM: Apr 14 2025 9:20AM [facility] 0539 - CT CHEST W IVCON / PROCEDURE REASON: History of lymphoma * * * * Physician Interpretation * * * * RESULT: EXAMINATION: CHEST CT WITH CONTRAST CLINICAL HISTORY: History of lymphoma. Technique: Spiral CT acquisition of the chest from the thoracic inlet to the upper abdomen following IV contrast. MQ: CTCW_6 Contrast: 100 mL Omnipaque [address] Radiation dose: Integrated Dose-length product (DLP) for this visit = 1517 mGy*cm CT Dose Reduction Employed: mAs-kVp adjusted based on patient size-age Comparison: Chest CT from 10/14/2024 RESULT: Limitations: None. Lines, tubes, and devices: None. Lung parenchyma and airways: -Stable 5 mm nodule in the lingula on slice 128 of series 4. -New 7 mm nodular density in the posterior right upper lobe, abutting the major fissure on slice 59 of series 4. Pleural space: No pleural effusion. No pleural thickening. Lower neck, lymph nodes, and mediastinum: No suspicious axillary, mediastinal, or hilar lymphadenopathy. Minimal residual thymic tissue which is stable when compared to the prior exam. Heart, pericardium, and thoracic vessels: No pericardial effusion. No significant coronary artery calcification. Bones and soft tissues: No destructive bone lesion. Chest wall is unremarkable. Upper abdomen: A CT of the abdomen and pelvis was performed and will be reported separately. Localizer images: No additional findings. IMPRESSION IMPRESSION: 1. No significant thoracic adenopathy. 2. New 7 mm nodular density in the posterior right upper lobe of the lungs. This is nonspecific. Would advise a short-term 3 month follow-up chest CT without contrast to reassess the nodule. ACTIONABLE RESULT: FOLLOW-UP Acuity: Actionable Findings: Thoracic-Lung nodules Routing code: RI_1 Recommendation: CT Chest WO IVCON Time Frame: 1-3 months COMMUNICATION: Results will be communicated with the ordering provider via [employer] staff message or phone message by [facility] within 2 business days of report finalization. --END OF FINDING-- Algorithms for management of incidental imaging findings can be found on the [facility] Intranet Sharepoint site at: [email or web address]%20Incidental%20Findi ngs%20at%20Imaging/Forms/[email or web address] Transcribe Date/Time: Apr 14 2025 12:00P Dictated by: MYNOR NORWOOD MD This examination was interpreted and the report reviewed and electronically signed by: MYNOR NORWOOD MD on Apr 14 2025 12:10PM EST Thank you for allowing us to participate in the care of your patient. Should there be any questions regarding this interpretation, please call [phone]. If you are unable to reach us at the number above, please feel free to contact [facility] at [phone]. us Steve Chawla MD CT-PAMA Final Res ult * (ABNORMAL) LACTATE DEHYDROGENASE (04/14/2025 8:19 AM EDT) [facility] LD 243(H) 135 - 214 U/L 04/14/2025 6:15 PM EDT [facility] Blood BLOOD SPECIMEN / Unknown Venipuncture / Unknown 04/14/2025 8:19 AM EDT 04/14/2025 8:23 AM EDT us Steve Chawla MD LABORATORY Final Res ult [facility] [address] [place] [address], * (ABNORMAL) COMPREHENSIVE METABOLIC PANEL (04/14/2025 8:19 AM EDT) [facility] Protein, Total 6.7 6.3 - 8.0 g/dL 04/14/2025 6:15 PM EDT [facility] Albumin 4.1 3.9 - 4.9 g/dL 04/14/2025 6:15 PM EDT [facility] Calcium, Total 9.1 8.5 - 10.2 mg/dL 04/14/2025 6:15 PM EDT [facility] Bilirubin, Total 0.5 0.2 - 1.3 mg/dL 04/14/2025 6:[facility] Alkaline Phosphatase 72 34 - 123 U/L 04/14/2025 6:15 PM [facility] AST 24 13 - 35 U/L 04/14/2025 6:15 PM [facility] ALT 26 7 - 38 U/L 04/14/2025 6:15 PM [facility] Glucose 90 74 - 99 mg/dL 04/14/2025 6:15 PM [facility] Comment: The [place] Diabetes Association (ADA) provides guidance for cutoff values for fasting glucose and random glucose. The ADA defines fasting as no caloric intake for at least 8 hours. Fasting plasma glucose results between 100 to 125 mg/dL indicate increased risk for diabetes (prediabetes). Fasting plasma glucose results greater than or equal to 126 mg/dL meet the criteria for diagnosis of diabetes. In the absence of unequivocal hyperglycemia, results should be confirmed by repeat testing. In a patient with classic symptoms of hyperglycemia or hyperglycemic crisis, random plasma glucose results greater than or equal to 200 mg/dL meet the criteria for diagnosis of diabetes. Reference: Standards of Medical Care in Diabetes 2016, [place] Diabetes Association. Diabetes Care. 2016.39(Suppl 1). BUN 10 7 - 21 mg/dL 04/14/2025 6:15 PM [facility] Creatinine 0.60 0.58 - 0.96 mg/dL 04/14/2025 6:15 PM [facility] Sodium 138 136 - 144 mmol/L 04/14/2025 6:15 PM [facility] Potassium 4.3 3.7 - 5.1 mmol/L 04/14/2025 6:15 PM [facility] Chloride 105 98 - 107 mmol/L 04/14/2025 6:15 PM [facility] CO2 20(L) 22 - 30 mmol/L 04/14/2025 6:15 PM [facility] Anion Gap 13 8 - 15 mmol/L 04/14/2025 6:15 PM [facility] Estimated Glomerular Filtration Rate 122 >=60 mL/min/1.7 3m 04/14/2025 6:15 PM [facility] Comment:Estimated Glomerular Filtration Rate (eGFR) is calculated using the 2020 CKD-EPI creatinine equation. This equation utilizes serum creatinine, sex, and age as parameters. The creatinine assay has traceable calibration to isotope dilution- mass spectrometry. Refer to KDIGO guidelines for clinical interpretation. In patients with unstable renal function, e.g. those with acute kidney injury, the eGFR may not accurately reflect actual GFR. Blood BLOOD SPECIMEN / Unknown Venipuncture / Unknown 04/14/2025 8:19 AM EDT 04/14/2025 8:23 AM EDT us Steve Chawla MD LABORATORY Final Res ult [facility] [address] [facility] [address] [address], [place] * COMPLETE BLOOD COUNT AND DIFFERENTIAL (04/14/2025 8:19 AM EDT) WBC 5.89 3.70 - 11.00 k/uL 04/14/2025 8:26 AM EDT [facility] RBC 4.81 3.90 - 5.20 m/uL 04/14/2025 8:26 AM EDT [facility] Hemoglobin 13.6 11.5 - 15.5 g/dL 04/14/2025 8:26 AM EDT [facility] Hematocrit 41.1 36.0 - 46.0 % 04/14/2025 8:26 AM EDT [facility] MCV 85.4 80.0 - 100.0 fL 04/14/2025 8:26 AM EDT [facility] MCH 28.3 26.0 - 34.0 pg 04/14/2025 8:26 AM EDT [facility] MCHC 33.1 30.5 - 36.0 g/dL 04/14/2025 8:26 AM EDT [facility] RDW-CV 13.8 11.5 - 15.0 % 04/14/2025 8:26 AM EDT [facility] Platelet Count 232 150 - 400 k/uL 04/14/2025 8:26 AM EDT [facility] MPV 11.4 9.0 - 12.7 fL 04/14/2025 8:26 AM EDT [facility] Neutrophils % 63.5 % 04/14/2025 8:26 AM EDT [facility] Abs Neut 3.74 1.45 - 7.50 k/uL 04/14/2025 8:26 AM EDT [facility] Lymphocytes % 25.3 % 04/14/2025 8:26 AM EDT [facility] Abs Lymph 1.49 1.00 - 4.00 k/uL 04/14/2025 8:26 AM EDT [facility] Monocytes % 7.3 % 04/14/2025 8:26 AM EDT [facility] Abs Graves 0.43 <0.87 k/uL 04/14/2025 8:26 AM EDT [facility] Eosinophils % 2.9 % 04/14/2025 8:26 AM EDT [facility] Abs Eosin 0.17 <0.46 k/uL 04/14/2025 8:26 AM EDT [facility] Basophils % 0.7 % 04/14/2025 8:26 AM EDT [facility] Abs Baso 0.04 <0.11 k/uL 04/14/2025 8:26 AM EDT [facility] Immature Granulocytes % 0.3 % 04/14/2025 8:26 AM EDT [facility] Abs Immature Gran <0.03 <0.10 k/uL 025 8:26 AM EDT [facility] NRBC 0.0 /100 WBC 04/14/2025 8:26 AM EDT [facility] Absolute nRBC <0.01 <0.01 k/uL 04/14/2025 8:26 AM EDT [facility] Diff Type Auto 04/14/2025 8:26 AM EDT [facility] Blood BLOOD SPECIMEN / Unknown Venipuncture / Unknown 04/14/2025 8:19 AM EDT 04/14/2025 8:23 AM EDT us Steve Chawla MD LABORATORY Final Res ult [facility] [address] [place] [address] * DIANELYS/TRICHOMONAS NAAT (03/18/2025 9:24 AM EDT) Dianelys species group RNA Not detected Not detected PANTHER SYSTEM HOLOGIC 03/19/2025 8:49 AM EDT [facility] Comment:The Dianelys species group target includes C. albicans, C. tropicalis, C. parapsilosis, and C. dubliniensis. Dianelys glabrata RNA Not detected Not detected PANTHER SYSTEM HOLOGIC 03/19/2025 8:49 AM EDT [facility] Trichomonas vaginalis RNA Not detected Not detected PANTHER SYSTEM HOLOGIC 03/19/2025 8:49 AM EDT [facility] Swab VAGINAL STRUCTURE / Unknown Non Blood / Unknown 03/18/2025 9:24 AM EDT 03/18/2025 2:55 PM EDT us Sebastien Chan MD MICROBIOLOGY Final Result [facility] [address] * BACTERIAL VAGINOSIS NAAT (03/18/2025 9:24 AM EDT) Bacterial vaginosis Not detected Not detected PANTHER SYSTEM HOLOGIC 03/19/2025 8:39 AM EDT [facility] Swab VAGINAL STRUCTURE / Unknown Non Blood / Unknown 03/18/2025 9:24 AM EDT 03/18/2025 2:55 PM EDT us Sebastien Chan MD MICROBIOLOGY Final Result Performing Organization Address [facility] Co de Phone Number [facility] [address] [facility] [address] [address], [place] * GONORRHEA/CHLAMYDIA NAAT (03/18/2025 9:24 AM EDT) Neisseria gonorrhoeae RNA Not detected Not detected PANTHER SYSTEM HOLOGIC 03/19/2025 9:56 AM EDT [facility] Chlamydia trachomatis RNA Not detected Not detected PANTHER SYSTEM HOLOGIC 03/19/2025 9:56 AM EDT [facility] Swab VAGINAL SWAB / Unknown Non Blood / Unknown 03/18/2025 9:24 AM EDT 03/18/2025 2:55 PM EDT Narrative [facility] - 03/19/2025 9:56 AM EDT This FDA-approved assay has been modified to accept rectal swabs self-collected in a healthcare setting. For self-collected rectal swabs, the test was developed and its performance characteristics determined by the [facility] [place] ([facility]). It has not been cleared or approved by the FDA. [facility] is regulated under CLIA as qualified to perform high-complexity testing. This test is used for clinical purposes. It should not be regarded as investigational or for research. Sebastien Chan MD MICROBIOLOGY Final Result Performing Organization Address [facility] Co de Phone Number [facility] [address] [facility] [address] [address], [place] * PAP TEST (02/25/2024 11:56 AM EDT) Case Report Gynecologic Cytology Report Case: [id number] Authorizing Provider: Sebastien Chan MD Collected: 02/25/2024 11:56 AM Ordering Location: CB/Gynecology Received: 02/26/2024 05:38 AM First Screen: Menard, Ama, CT, ASCP Specimen: Pap Test, ThinPrep, Cervix 03/09/2024 11:18 AM EDT [facility] Specimen Adequacy Satisfactory for interpretation. 03/09/2024 11:18 AM EDT [facility] Interpretation Negative for intraepithelial lesion or malignancy. 03/09/2024 11:18 AM EDT [facility] at 1118 EDT Clinical History Routine Exam 2023 11:18 AM EDT [facility] LMP 02/03/2024 03/09/2024 11:18 AM EDT [facility] HPV Reflex HPV if Atypical 11:18 AM EDT [facility] Pap Disclaimer The Pap Smear is a screening test for cervical cancer. False negative results occur with all screening tests, emphasizing the need for rescreening at recommended intervals, and clinical correlation. 03/09/2024 11:18 AM EDT [facility] PAP Multiplex Operator Comment This specimen has been analyzed by the ThinPrep Imaging System, an automated imaging and review system, which assists the laboratory in evaluating cells on ThinPrep Pap tests. Following automated imaging, selected kinsey from every slide are reviewed by a endocrinology physician. 03/09/2024 11:18 AM EDT [facility] Performing Lab Technical component, endocrinology physician screening performed at [facility], [address] [place] [address] CLIA# [id number] Diagnostic interpretation performed at [facility], [address] [place] [address] CLIA# [id number] Tech Ed Teacher: Cj Davis M.D. 03/09/2024 11:18 AM EDT [facility] Sterile Fluid/Body Fluid CERVICAL / Unknown Non Blood / Unknown 02/25/2024 11:56 AM EDT 02/26/2024 5:38 AM EDT us Sebastien Chan MD CYTOLOGY Final Result [facility] [address] [place] [address] [place] [address], [place] * HIV 1 2 COMBO(AG/AB),WITH REFLEX TO DIFFERENTIATION (12/17/2022 9:27 AM EST) HIV 12 Combo (Ag/Ab) Nonreactive Nonreactive 12/17/2022 6:14 PM EST [facility] HIV-1/2 AB (Confirmatory) 12/17/2022 6:14 PM EST [facility] Comment:Test not indicated. HIV Interpretation 12/17/2022 6:14 PM EST [facility] Comment: No evidence of HIV-1 or HIV-2 infection. Should recent infection be suspected, repeat testing may be considered 2-3 weeks after this draw. [place] Rev. Code 3701.243(E): This information has been disclosed to you from confidential records protected from disclosure by state law. You shall make no further disclosure of this information without the specific, written, and informed release of the individual to whom it pertains or as otherwise permitted by state law. A general authorization for the release of medical or other information is not sufficient for the purpose of the release of HIV test results or diagnoses. Blood BLOOD SPECIMEN / Unknown Venipuncture / Unknown 12/17/2022 9:27 AM EST 12/17/2022 9:27 AM EST us Jai Hernandez MD LABORATORY Final Result Performing Organization Address City/State/[facility] Co de Phone Number [facility] [address] [place] [address], * HEP C AB IA W/CONF SCRN (12/17/2022 9:27 AM EST) Hep C Antibody IA Negative Negative 12/18/2022 12:37 AM EST [facility] Comment:The result suggests no evidence of active infection with Hepatitis C virus. Should recent infection be suspected, repeat testing may be considered 4-6 weeks after this draw. Blood BLOOD SPECIMEN / Unknown Venipuncture / Unknown 12/17/2022 9:27 AM EST 12/17/2022 9:27 AM EST us Jai Hernandez MD LABORATORY Final Result [facility] [address] [facility] [address] [place] [address], [place] from Last 3 Months or Most Recently Relevant to Health Maintenance [facility] Care Teams Ticket Taker Relationship Specialty Start Date End Date Ninfa Diaz DO [address] [facility] [place] [address] PCP - General Family Medicine 12/05/22 Sintia Gilbert LSW Bridge Repair Crew Person 12/19/22 Susie Kohli, PA-C [address] [place] [address] Physician Internal Affairs Commander Hematology/Oncology 12/23/22 Steve Chawla MD [address] [place] [address] [place] [address] Physician Hematology/Oncology 09/29/24
--- OUTSIDE RECORDS SUMMARY | 2025-05-02 16:07 | XMS_ITS | Encounter Summary ---
Author Organization [facility] Address [address] [place] [address] Care Team Providers Care Disability Counselor Name Role Phone Unavailable Primary Care Provider Unavailabl e Encounter Details Date Type Department Care Team (Late st Contact Info) Description 04/08/[address] [facility] [address] [phone] Gaston Hu MD [address] [address] Social History Tobacco Use Types Packs/Day Years Used Date Smoking Tobacco: Never Assessed Comments Unknown Sex and Gender Information Value Date Recorded Sex Assigned at Not on file Legal Sex Female 11:40 PM EDT Gender Identity Not on file Sexual Orientation Not on file documented as of this encounter Plan of Treatment Not on file documented as of this encounter Visit Diagnoses Not on filedocumented in this encounter
--- OUTSIDE RECORDS SUMMARY | 2025-05-02 16:07 | XMS_ITS | Encounter Summary ---
Author Organization [facility] Address [facility] [place] [address] Care Team Providers Care Timber Repairer Name Role Phone Ninfa Diaz Primary Care Provider + [phone] Sintia Gilbert Unavailable Unavailable Jai Hernandez MD Unavailable [phone] Susie Kohli PA-C Unavailable [phone] Steve Chawla MD Unavailable [phone] Source Comments In the event this information is protected by the Federal Confidentiality of Alcohol and Drug AbusePatient Records regulations: The Federal rules restrict any use of the information to criminally investigate or prosecute any alcohol or drug abuse patient.[facility] Encounter Details Date Type Department Care Team (Late st Contact Info) Description 03/31/2024 Patient Msg CB/Gynecology [address] [place] [address] Sebastien Chan MD [address] [address] Appointment Request Social History Tobacco [...] is lower risk 7 03/18/2023 Data from: https://www.neighborhoodatlas.medicine.[facility].edu/. Last address used for calculation [address] [...] 9:00 AM EDT Appointment MRI Q [address] [address] MRI ABD ENTEROG WO/W IVCON 06/21/2025 10:30 AM EDT Appointment MRI Q [address] [address] MRI ABD ENTEROG WO/W IVCON 07/14/2025 7:45 AM EDT Appointment Radiology Pet CT [address] [facility] [place] [address] Ct Chest without contrast 07/19/2025 9:30 AM EDT Visit (SP) Office Hematology/Oncolog y [address] [facility] [place] [address] Steve Chawla MD [address] [facility] [place] [address] 3 month follow up 03/31/2026 10:00 AM EDT Office Visit CB/Gynecology [address] [place] [address] Sebastien Chan MD [address] [facility] [address] [place] [address] annual & pap documented as of this encounter Visit Diagnoses Not on filedocumented in this encounter Care Teams Timber Repairer Relationship Specialty Start Date End Date Ninfa Diaz [address] [facility]. [facility] [place] [address] PCP - General Family Medicine 12/05/22 Sintia Gilbert LSW Blanket Binder 12/19/22 Jai Hernandez MD [address] [place] [address] [place] [address] Physician Hematology/Oncology 12/23/22 09/28/24 Susie Kohli PA-C [address] [place] [address] [place] [address] Physician Cut Out Press Operator Hematology/Oncology 12/23/22 Steve Chawla MD [address] [place] [address] [place] [address] Physician Hematology/Oncology 09/29/24 documented as of this encounter
--- OUTSIDE RECORDS SUMMARY | 2025-05-02 16:07 | XMS_ITS | Encounter Summary ---
Author Organization [facility] Address [address] [place] [address] Care Team Providers Care Childcare Director Name Role Phone DiazNinfa Mackenzie ARREGUIN Primary Care Provider + [phone] Sintia Gilbert Unavailable Unavailable Susie Kohli PA-C Unavailable [phone] Steve Chawla MD Unavailable [phone] Source Comments In the event this information is protected by the Federal Confidentiality of Alcohol and Drug AbusePatient Records regulations: The Federal rules restrict any use of the information to criminally investigate or prosecute any alcohol or drug abuse patient.[facility] Encounter Details Date Type Department Care Team (Late st Contact Info) Description 05/02/2025 Telephone OB/Gynecology [address] [place] [address] Sebastien Chan MD [address] [address] Social History Tobacco Use Types Packs/Day Years [...] 7 03/18/2023 Data from: https://www.neighborhoodatlas.medicine.[facility].edu/. Last address used for calculation [address] 03/18/2023 Comments No Sex and Gender Information Value Date Recorded Sex Assigned at Not on file Legal Sex Female 4:43 PM EST Gender Identity Not on file Sexual Orientation Not on file documented as of this encounter Miscellaneous Notes * Telephone Encounter - Nithya Rodriguez RN - 05/02/2025 1:53 PM EDT routed to provider. IUD placed 12/15/24. See CT result that shows IUD in lower uterine segment. documented in this encounter Plan of Treatment Upcoming Encounters Date Type Department Care Team (Late st Contact Info) Description 06/21/2025 9:00 AM EDT Appointment MRI Q [address] [address] MRI ABD ENTEROG WO/W IVCON 06/21/2025 10:30 AM EDT Appointment MRI Q [address] [address] MRI ABD ENTEROG WO/W IVCON 07/14/2025 7:45 AM EDT Appointment Radiology Pet CT [address] [facility] [place] [place] [address] Ct Chest without contrast 07/19/2025 9:30 AM EDT Visit (SP) Office Hematology/Oncolog y [address] [place] [address] Steve Chawla MD [address] [place] [address] 3 month follow up 03/31/2026 10:00 AM EDT Office Visit CB/Gynecology [address] [place] [address] Sebastien Chan MD [address] [facility] [address] [place] [phone] annual & pap documented as of this encounter Visit Diagnoses Not on filedocumented in this encounter Care Teams Childcare Director Relationship Specialty Start Date End Date Ninfa Diaz DO [address] [facility] [address] PCP - General Family Medicine 12/05/22 Sintia Gilbert LSW Conference Center Manager 12/19/22 Susie Kohli, PA-C [address] [place] [address] Physician Tax Analyst Hematology/Oncology 12/23/22 Steve Chawla MD [address] [facility] [place] [address] Physician Hematology/Oncology 09/29/24 documented as of this encounter
--- OUTSIDE RECORDS SUMMARY | 2025-05-02 16:07 | XMS_ITS | Encounter Summary ---
Author Organization [facility] Address [address] [place] [address] Care Team Providers Care Air Director Name Role Phone Ninfa Diaz Mackenzie ARREGUIN Primary Care Provider + [phone] Sintia Gilbert Unavailable Unavailable Lisa Delgado RN Unavailable [phone] Jai Hernandez MD Unavailable [phone] Susie Kohli PA-C Unavailable [phone] Steve Chawla MD Unavailable [phone] Source Comments In the event this information is protected by the Federal Confidentiality of Alcohol and Drug AbusePatient Records regulations: The Federal rules restrict any use of the information to criminally investigate or prosecute any alcohol or drug abuse patient.[facility] Encounter Details Date Type Department Care Team (Late st Contact Info) Description 11/29/2022 Lab Requisition [facility] Laboratory [address] [place] [address] Mitchell Navarrete MD Person encountering health services to consult on behalf of another person Social History Tobacco Use Types Packs/Day Years [...] 9:00 AM EDT Appointment MRI Q [address] [address] MRI ABD ENTEROG WO/W IVCON 06/21/2025 10:30 AM EDT Appointment MRI Q [address] [address] MRI ABD ENTEROG WO/W IVCON 07/14/2025 7:45 AM EDT Appointment Radiology Pet CT [address] [address] Ct Chest without contrast 07/19/2025 9:30 AM EDT Visit (SP) Office Hematology/Oncolog y [address] [address] Steve Chawla MD [address] [place] [address] 3 month follow up 03/31/2026 10:00 AM EDT Office Visit CB/Gynecology [address] [place] [address] Sebastien Chan MD [address] [address] annual & pap documented as of this encounter Procedures Procedure Name Priority Date/Time Associated Diagnosis Comments SURGICAL PATHOLOGY REFERENCE LAB CONSULT Routine 11/29/2022 4:46 PM EST Person encountering health services to consult on behalf of another person documented in this encounter Results * SURGICAL PATHOLOGY REFERENCE LAB CONSULT (11/29/2022 4:46 PM EST) Case Report Surgical Pathology Report Case: [id number] Authorizing Provider: Mitchell Navarrete Collected: 11/29/2022 04:46 PM Ordering Location: Hosp Lab Main Received: 11/29/2022 04:44 PM Pathologist: Philipp Starr V, MD, PhD Specimen: SLIDE(S), 31 SLIDES ([id number]) 12/13/2022 10:48 AM EST [facility] FINAL DIAGNOSIS Materials ([id number], 11/21/22) submitted from [facility], [place], [place] A. Left inguinal lymph nodes #1 and #2, excisional biopsy (Submitted parts A and B): - Anaplastic large cell lymphoma, ALK positive - Small, atypical B-cell population identified by flow cytometry only - See comment 12/13/2022 10:48 AM EST [facility] at 1406 EST Diagnosis Comment The patient is a 32-year-old female presenting with a left inguinal mass. Histologic sections demonstrate markedly enlarged lymph node with a lymphoma infiltrate with predominantly intra-sinusoidal pattern. The neoplastic cells are large with ovoid/round to irregular nuclei with dispersed chromatin and prominent often multiple nucleoli. A subset show multiple nucleoli or horseshoe-shaped nuclei. They have increased, eosinophilic cytoplasm. Focal [...] Additional immunohistochemical stains have been performed at [facility] with appropriately staining controls. The neoplastic cells [...] was limited by decreased viability (less than 80%). 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 The significance of the abnormal population identified by flow cytometry only is unclear, it may represent a reactive process. Correlation with the clinical and radiologic findings is recommended. Laboratory Developed Test (LDT) Disclaimer: Performance characteristics of immunohistochemical, immunofluorescent and chromogenic in-situ hybridization tests have been determined by the performing laboratory within [facility] s [facility] [place] ([facility], [place] [facility], [facility], [facility], [facility], or [facility]) in a manner consistent with CLIA requirements. One or more of these tests have not been cleared or approved by the FDA. [facility] is regulated under CLIA as qualified to perform high-complexity testing. These tests are used for clinical purposes. They should not be regarded as investigational or for research. Positive and negative controls stain appropriately. 12/13/2022 10:48 AM EST [facility] Clinical History CONSULT REQUESTED 12/13/2022 10:48 AM EST [facility] Performing Lab Diagnostic interpretation performed at [facility], [address] [place], [place] [id number] CLIA# [id number] Hat Cutter: Cj Davis M.D. 12/13/2022 10:48 AM EST [facility] Addendum Ultra-sensitive chromogenic in-situ hybridization with probes for kappa or lambda immunoglobulin light chain mRNA highlights polytypic plasma cells and B-cells. The final diagnosis remains unchanged. 12/13/2022 10:48 AM EST [facility] Addendum electronically signed by Philipp Starr V, MD, PhD on 12/13/2022 at 1048 EST Blocks or Slides MICROSCOPE SLIDE / Unknown 11/29/2022 4:46 PM EST 11/29/2022 4:44 PM EST us Mitchell Navarrete MD SURGICAL PATHOLOGY Edited R esult - Final [facility] [address] [facility] [address] [place] [address], documented in this encounter Visit Diagnoses Diagnosis Person encountering health services to consult on behalf of another person Other person consulting on behalf of another person documented in this encounter Care Teams Air Director Relationship Specialty Start Date End Date Ninfa Diaz DO [address] [facility] [place] [address] PCP - General Family Medicine 12/05/22 Sintia Gilbert LSW Teacher Instrumental 12/19/22 Lisa Delgado, RN [address] [place] [address] [place] [address] Specialty Bottom Turner Hematology/Oncology 12/23/22 03/10/24 Jai Hernandez MD [address] [place] [address] [place] [address] Physician Hematology/Oncology 12/23/22 09/28/24 Susie Kohli, PA-C [address] [place] [address] [place] [address] Physician Box Order Person Hematology/Oncology 12/23/22 Steve Chawla MD [address] [place] [address] [place] [address] Physician Hematology/Oncology 09/29/24 documented as of this encounter
--- OUTSIDE RECORDS SUMMARY | 2025-05-02 16:07 | XMS_ITS | Encounter Summary ---
Author Organization [facility] Address [address] [place] [address] Care Team Providers Care Pipeline Superintendent Division Name Role Phone Ninfa Diaz Mackenzie ARREGUIN Primary Care Provider + [phone] Sintia Gilbert Unavailable Unavailable Lisa Delgado RN Unavailable [phone] Jai Hernandez MD Unavailable [phone] Susie Kohli PA-C Unavailable [phone] Steve Chawla MD Unavailable [phone] Source Comments In the event this information is protected by the Federal Confidentiality of Alcohol and Drug AbusePatient Records regulations: The Federal rules restrict any use of the information to criminally investigate or prosecute any alcohol or drug abuse patient.[facility] Encounter Details Date Type Department Care Team (Late st Contact Info) Description 05/29/2023 Patient [facility] Radiology Procedure [address] [place] [address] Provider, Keanu You are scheduled for a Port Removal, On 06/03/2023. Social History Tobacco Use Types Packs/Day Years Used Date Smoking Tobacco: Former Cigarettes Passive Smoke Exposure: Past Smokeless Tobacco: Never Alcohol Use Standard Drinks/Week Comments Not Currently 0 (1 standard drink = 0.6 oz pur e alcohol) Area Deprivation Index Answer Date Tyson rded National Score (1-100), lower number is lower ri sk 80 03/18/2023 State Score (1-10), lower number is lower risk 7 03/18/2023 Data from: https://www.neighborhoodatlas.medicine.[facility]/. Last address used for calculation [address] 03/18/2023 Comments No Sex and Gender Information Value Date Recorded Sex Assigned at Not on file Legal Sex Female 4:43 PM EST Gender Identity Not on file Sexual Orientation Not on file documented as of this encounter Plan of Treatment Upcoming Encounters Date Type Department Care Team (Late st Contact Info) Description 06/21/2025 9:00 AM EDT Appointment MRI Q [address] [address] MRI ABD ENTEROG WO/W IVCON 06/21/2025 10:30 AM EDT Appointment MRI Q [address] [address] MRI ABD ENTEROG WO/W IVCON 07/14/2025 7:45 AM EDT Appointment Radiology Pet CT [address] [facility] [place] [address] Ct Chest without contrast 07/19/2025 9:30 AM EDT Visit (SP) Office Hematology/Oncolog y [address] [facility] [place] [address] Steve Chawla MD [address] [facility] [place] [address] 3 month follow up 03/31/2026 10:00 AM EDT Office Visit CB/Gynecology [address] [place] [address] Sebastien Chan MD [address] [facility] 302 [place] [address] annual & pap documented as of this encounter Visit Diagnoses Not on filedocumented in this encounter Care Teams Pipeline Superintendent Division Relationship Specialty Start Date End Date Ninfa Diaz DO [address] [facility] [address] PCP - General Family Medicine 12/05/22 Sintia Gilbert LSW Lithograph Press Operator Tinware 12/19/22 Lisa Delgado, RN [address] [place] [address] [place] [address] Specialty Flat Polisher Hematology/Oncology 12/23/22 03/10/24 Jai Hernandez MD [address] [place] [address] [place] [id number] Physician Hematology/Oncology 12/23/22 09/28/24 Susie Kohli PA-C [address] [place] [address] [place] [address] Physician Emergency Worker Hematology/Oncology 12/23/22 Steve Chawla MD [address] [place] [address] [place] [address] Physician Hematology/Oncology 09/29/24 documented as of this encounter
--- OUTSIDE RECORDS SUMMARY | 2025-05-02 16:07 | XMS_ITS | Encounter Summary ---
Author Organization [facility] Address [address] [place] [address] Care Team Providers Care Sales Representatives Name Role Phone Ninfa Diaz Mackenzie ARREGUIN Primary Care Provider + [phone] Sintia Gilbert Unavailable Unavailable Lisa Delgado RN Unavailable [phone] Jai Hernandez MD Unavailable [phone] Susie Kohli PA-C Unavailable [phone] Steve Chawla MD Unavailable [phone] Source Comments In the event this information is protected by the Federal Confidentiality of Alcohol and Drug AbusePatient Records regulations: The Federal rules restrict any use of the information to criminally investigate or prosecute any alcohol or drug abuse patient.[facility] Encounter Details Date Type Department Care Team (Late st Contact Info) Description 05/18/2023 Patient Msg Procedures [address] [place] [address] Provider, Ccf UNABLE TO REACH YOU Social History Tobacco Use Types Packs/Day Years [...] is lower risk 7 03/18/2023 Data from: https://www.neighborhoodatlas.medicine.[facility].edu/. Last address used for calculation [address] [...] 9:00 AM EDT Appointment MRI Q [address] [address] MRI ABD ENTEROG WO/W IVCON 06/21/2025 10:30 AM EDT Appointment MRI Q [address] [address] MRI ABD ENTEROG WO/W IVCON 07/14/2025 7:45 AM EDT Appointment Radiology Pet CT [address] [facility] [facility] [place] [address] Ct Chest without contrast 07/19/2025 9:30 AM EDT Visit (SP) Office Hematology/Oncolog y [address] [facility] [place] [address] Steve Chawla MD [address] [facility] [facility] [address] 3 month follow up 03/31/2026 10:00 AM EDT Office Visit CB/Gynecology [address] [place] [address] Sebastien Chan MD [address] [facility] 302 [place] [address] annual & pap documented as of this encounter Visit Diagnoses Not on filedocumented in this encounter Care Teams Sales Representatives Relationship Specialty Start Date End Date Ninfa Diaz DO [address] [facility] [place] [address] PCP - General Family Medicine 12/05/22 Sintia Gilbert LSW Minute Clerk For Basic Traffic 12/19/22 Lisa Delgado, RN [address] [place] [address] [place] [address] Specialty Broadcast Transmitter Operator Hematology/Oncology 12/23/22 03/10/24 Jai Hernandez MD [address] [place] [address] [place] [address] Physician Hematology/Oncology 12/23/22 09/28/24 Susie Kohli PA-C [address] [place] [address] [place] [address] Physician Gasket Former Hematology/Oncology 12/23/22 Steve Chawla MD [address] [place] [address] [place] [address] Physician Hematology/Oncology 09/29/24 documented as of this encounter
--- OUTSIDE RECORDS SUMMARY | 2025-05-02 16:07 | XMS_ITS | Patient Health Record ---
Author Organization [facility] Address [address] [place] [address] Care Team Providers Care Director Of Finance Name Role Phone Roxana Rangel Primary Care Provider [phone] Trina Francois Unavailable [phone] Rose Mcneill Unavailable [phone] Brittany Dave Unavailable [phone] Reason For Referral No Information Encounters Encounter Location Date Provider Diagnosis [facility] [address] [place] [address] 01/21/2025 Rose Mcneill Acute gingivitis, plaque induced K05.00 [facility] [address] [place] [address] 07/22/2024 Roxana Walton Dental caries on pit and fissure surface penetrating into dentin K02.52 [facility] [address] [place] [address] 11/16/2024 Rxoana Walton Dental caries on pit and fissure surface penetrating into dentin K02.52 Assessments Encounter Date Diagnosis (ICD Code) Assessment Notes Treatment Notes Treatment Clinical Notes Section Notes 07/22/2024 Dental caries on pit and fissure surface penetrating into dentin (ICD-10 - K02.52) 11/16/2024 Dental caries on pit and fissure surface penetrating into dentin (ICD-10 - K02.52) 01/21/2025 Acute gingivitis, plaque induced (ICD-10 - K05.00) Plan Of Treatment Next Appt Details Provider Name:Rose Mcneill, 08/16/2025 03:15:00 PM, [address] [place], [address], Insurance Providers Payer Name Payer Address Payer Phone Subscriber Number Group Number Insured Name Patient Relationship to Insured Coverage Start Date Coverage End Date [employer] [place] [address] [facility] [place] [phone] [id number] NICKO CENTENO Self - patient is the insured 3 Dental [employer] [address] [place] [address] [id number] NICKO CENTENO Self - patient is the insured 3
--- OUTSIDE RECORDS SUMMARY | 2025-05-02 16:07 | XMS_ITS | Encounter Summary ---
Author Organization [facility] Address [facility] [place] [address] Care Team Providers Care Med Dir Name Role Phone Ninfa Diaz Mackenzie ARREGUIN Primary Care Provider + [phone] Sintia Gilbert Unavailable Unavailable Jai Hernandez MD Unavailable [phone] Susie Kohli PA-C Unavailable [phone] Steve Chawla MD Unavailable [phone] Source Comments In the event this information is protected by the Federal Confidentiality of Alcohol and Drug AbusePatient Records regulations: The Federal rules restrict any use of the information to criminally investigate or prosecute any alcohol or drug abuse patient.[facility] Encounter Details Date Type Department Care Team (Late st Contact Info) Description 09/17/2024 [place] [address] Provider, [facility]cf FINANCIAL CLEARANCE Social History Tobacco Use Types Packs/Day Years [...] is lower risk 7 03/18/2023 Data from: https://www.neighborhoodatlas.medicine.[facility].edu/. Last address used for calculation [address] [...] 9:00 AM EDT Appointment MRI Q [address] [address] MRI ABD ENTEROG WO/W IVCON 06/21/2025 10:30 AM EDT Appointment MRI Q [address] [address] MRI ABD ENTEROG WO/W IVCON 07/14/2025 7:45 AM EDT Appointment Radiology Pet CT [address] [facility] [place] [address] Ct Chest without contrast 07/19/2025 9:30 AM EDT Visit (SP) Office Hematology/Oncolog y [address] [facility] [place] [address] Steve Chawla MD [address] [facility] [place] [address] 3 month follow up 03/31/2026 10:00 AM EDT Office Visit CB/Gynecology [address] [place], [place] [address] Sebastien Chan MD 17[address] [facility] 302 [place] [address] annual & pap documented as of this encounter Visit Diagnoses Not on filedocumented in this encounter Care Teams Med Dir Relationship Specialty Start Date End Date Ninfa Diaz DO [address] [facility] [place] [address] PCP - General Family Medicine 12/05/22 Sintia Gilbert LSW Hand Plug Shaper 12/19/22 Jai Hernandez MD [address] [place] [address] Physician Hematology/Oncology 12/23/22 09/28/24 Susie Kohli PA-C [address] [place] [address] [place] [address] Physician Yarn Texturing Machine Operator Hematology/Oncology 12/23/22 Steve Chawla MD [address] [place] [address] [place] [address] Physician Hematology/Oncology 09/29/24 documented as of this encounter
--- OUTSIDE RECORDS SUMMARY | 2025-05-02 16:07 | XMS_ITS | Encounter Summary ---
Author Organization [facility] Address [address] [place] [address] Care Team Providers Care Sew On Operator Name Role Phone Unavailable Primary Care Provider Unavailabl e Encounter Details Date Type Department Care Team (Late st Contact Info) Description 05/20/2023 Abstract [facility] [address] [phone] Gaston Hu MD [address] [address] Social History Tobacco Use Types [...]
--- OUTSIDE RECORDS SUMMARY | 2025-05-02 16:07 | XMS_ITS | Encounter Summary ---
Author Organization [facility] Address [address] [place] [address] Care Team Providers Care Card Checker Name Role Phone Ninfa Diaz DO Primary Care Provider [phone] Sintia Gilbert Unavailable Unavailable Lisa Delgado RN Unavailable [phone] Jai Hernandez MD Unavailable [phone] Susie Kohli PA-C Unavailable [phone] Steve Chawla MD Unavailable [phone] Source Comments In the event this information is protected by the Federal Confidentiality of Alcohol and Drug AbusePatient Records regulations: The Federal rules restrict any use of the information to criminally investigate or prosecute any alcohol or drug abuse patient.[facility] Encounter Details Date Type Department Care Team (Late st Contact Info) Description 05/20/2023 GI Preprocedure Call [facility] Surgery [address] [facility] [place] [address] Ninfa Diaz DO [address] [facility] [place] [address] Social History Tobacco Use Types Packs/Day [...] is lower risk 7 03/18/2023 Data from: https://www.neighborhoodatlas.medicine.[facility]/. Last address used for calculation [address] [...] 9:00 AM EDT Appointment MRI Q [address] [address] MRI ABD ENTEROG WO/W IVCON 06/21/2025 10:30 AM EDT Appointment MRI Q [address] [address] MRI ABD ENTEROG WO/W IVCON 07/14/2025 7:45 AM EDT Appointment Radiology Pet CT [address] [facility] [place] [address] Ct Chest without contrast 07/19/2025 9:30 AM EDT Visit (SP) Office Hematology/Oncolog y [address] [facility] [place] [address] Steve Chawla MD [address] [facility] [place] [address] 3 month follow up 03/31/2026 10:00 AM EDT Office Visit CB/Gynecology [address] [address] Sebastien Chan MD 72[address] [facility] 302 [place] [address] annual & pap documented as of this encounter Visit Diagnoses Not on filedocumented in this encounter Care Teams Card Checker Relationship Specialty Start Date End Date Ninfa Diaz DO Mackenzie [address] [facility] [place] [address] PCP - General Family Medicine 12/05/22 Sitnia Gilbert LSW Dam Tender Assistant 12/19/22 Lisa Delgado, RN [address] [facility] [place] [address] Specialty Marine Driller Hematology/Oncology 12/23/22 03/10/24 Jai Hernandez MD [address] [place] [address] [place] [address] Physician Hematology/Oncology 12/23/22 09/28/24 Susie Kohli, PA-C [address] [place] [address] [place] [address] Physician Moisture Conditioner Operator Hematology/Oncology 12/23/22 Steve Chawla MD [address] [facility] [place] [address] Physician Hematology/Oncology 09/29/24 documented as of this encounter
--- OUTSIDE RECORDS SUMMARY | 2025-05-02 16:07 | XMS_ITS | Encounter Summary ---
Author Organization [facility] Address [address] [place] [address] Care Team Providers Care Child Caregiver Private Home Name Role Phone EmilyNinfa Mackenzie ARREGUIN Primary Care Provider + [phone] Sintia Gilbert Unavailable Unavailable Susie Kohli PA-C Unavailable [phone] Steve Chawla MD Unavailable [phone] Source Comments In the event this information is protected by the Federal Confidentiality of Alcohol and Drug AbusePatient Records regulations: The Federal rules restrict any use of the information to criminally investigate or prosecute any alcohol or drug abuse patient.[facility] Encounter Details Date Type Department Care Team (Latest Contact Info) Description 04/21/2025 Travel Social History Tobacco Use Types Packs/Day Years [...] risk 7 03/18/2023 Data from: https://www.neighborhoodatlas.medicine.[facility].edu/. Last address used for calculation [...] AM EDT Appointment MRI Q [address] [address] MRI ABD ENTEROG WO/W IVCON 06/21/2025 10:30 AM EDT Appointment MRI Q [address] [address] MRI ABD ENTEROG WO/W IVCON 07/14/2025 7:45 AM EDT Appointment Radiology Pet CT [address] [facility] [place] [place] [address] Ct Chest without contrast 07/19/2025 9:30 AM EDT Visit (SP) Office Hematology/Oncolog y [address] [facility] [place] [place] [address] Steve Chawla MD [address] [facility] [place] [address] 3 month follow up 03/31/2026 10:00 AM EDT Office Visit CB/Gynecology [address] [facility] [place] [address] Sebastien Chan MD 260[address] [facility] 302 [place] [address] annual & pap documented as of this encounter Visit Diagnoses Not on filedocumented in this encounter Care Teams Child Caregiver Private Home Relationship Specialty Start Date End Date Ninfa Diaz DO [address] [facility] [address] PCP - General Family Medicine 12/05/22 Sintia Gilbert LSW Editor 12/19/22 Susie Kohli PA-C [facility] [place] [place] [address] Physician Apprentice Painter Brush Hematology/Oncology 12/23/22 Steve Chawla MD [address] [facility] [place] [place] [address] Physician Hematology/Oncology 09/29/24 documented as of this encounter
--- OUTSIDE RECORDS SUMMARY | 2025-05-02 16:07 | XMS_ITS | Clinical Summary ---
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 Social History Tobacco Use Types Packs/Day Years Used Date Smoking Tobacco: Never Assessed Comments Unknown Sex and Gender Information Value Date Recorded Sex Assigned at Not on file Legal Sex Female 11:40 PM EDT Gender Identity Not on file Sexual Orientation Not on file Last Filed Vital Signs Vital Sign Reading Time Taken Comments Blood Pressure 110/68 10/29/2022 12:00 PM EST Pulse - - Temperature - - Respiratory Rate - - Oxygen Saturation - - Inhaled Oxygen Concentration - - Weight 90.7 kg (200 lb) 12/30/2022 12:00 PM EST Height 162.6 cm (5' 4 ) 12/30/2022 12:00 PM EST Body Mass Index 34.33 12/30/2022 12:00 PM EST Plan of Treatment Not on file Insurance [facility]
--- OUTSIDE RECORDS SUMMARY | 2025-05-02 16:07 | XMS_ITS | Clinical Summary ---
Author Organization [facility] Address [address] [place] [address] Phone Care Team Providers Care Roundhouse Worker Name Role Phone Unavailable Primary Care Provider Unavailabl e Social History Tobacco Use Types Packs/Day Years Used Date Smoking Tobacco: Never Assessed Comments Unknown Sex and Gender Information Value Date Recorded Sex Assigned at Not on file Legal Sex Female 1:52 PM EST Gender Identity Not on file Sexual Orientation Not on file Plan of Treatment Health Maintenance Due Date Last Done Comments HIV Screening 1991 Lipid Panel 1991 Yearly Adult Physical 1991 MMR Vaccines (1 of 1 - Stand ana series) 1992 Varicella Vaccines (1 of 2 - 13+ 2-dose series) 2004 Hepatitis C Screening 2009 Hepatitis B Vaccines (1 of 3 - 19+ 3-dose series) 2010 Cervical Cancer Screening 2012 HPV/Cotest 2012 Pap Smear 2012 DTaP/Tdap/Td Vaccines (1 - Tdap) 2013 COVID-19 Vaccine (1 - 2023-2 5 season) 2024 Influenza Vaccine (Season Ended) 2025 Zoster Vaccines (1 of 2) 2041 HIB Vaccines Aged Out No longer eligi ble based on patient's age to complete this topic HPV Vaccines Aged Out No longer eligi ble based on patient's age to complete this topic Hepatitis A Vaccines Aged Out No long er eligible based on patient's age to complete this topic IPV Vaccines Aged Out No longer eligi ble based on patient's age to complete this topic Meningococcal Vaccine Aged Out No rajeev macario eligible based on patient's age to complete this topic Pneumococcal Vaccine: Pediat rics and At-Risk Adult Patients Aged Out No longer yadi gible based on patient's age to complete this topic Rotavirus Vaccines Aged Out No longer eligible based on patient's age to complete this topic
--- OUTSIDE RECORDS SUMMARY | 2025-05-02 16:07 | XMS_ITS | Encounter Summary ---
Author Organization [facility] Address [address] [place] [id number] Care Team Providers Care Workday Manager Name Role Phone Ninfa Diaz Mackenzie ARREGUIN Primary Care Provider + [phone] Sintia Gilbert Unavailable Unavailable Susie Kohli PA-C Unavailable [phone] Steve Chawla MD Unavailable [phone] Source Comments In the event this information is protected by the Federal Confidentiality of Alcohol and Drug AbusePatient Records regulations: The Federal rules restrict any use of the information to criminally investigate or prosecute any alcohol or drug abuse patient.[facility] Encounter Details Date Type Department Care Team (Late st Contact Info) Description 04/15/2025 Patient Msg Pulmonary Medicine [address] [address] Result Notification Social History Tobacco Use Types Packs/Day Years [...] is lower risk 7 03/18/2023 Data from: https://www.neighborhoodatlas.medicine.[facility].edu/. Last address used for calculation [address] [...] AM EDT Appointment MRI Q [address] [address] MRI ABD ENTEROG WO/W IVCON 06/21/2025 10:30 AM EDT Appointment MRI Q [address] [address] MRI ABD ENTEROG WO/W IVCON 07/14/2025 7:45 AM EDT Appointment Radiology Pet CT [address] [place] [address] Ct Chest without contrast 07/19/2025 9:30 AM EDT Visit (SP) Office Hematology/Oncolog y [address] [place] [address] Steve Chawla MD [address] [place] [address] 3 month follow up 03/31/2026 10:00 AM EDT Office Visit CB/Gynecology [address] [place], [place] [id number] Sebastien Chan MD [address] [facility] [address] [place] [address] annual & pap documented as of this encounter Visit Diagnoses Not on filedocumented in this encounter Care Teams Workday Manager Relationship Specialty Start Date End Date Ninfa Diaz DO [address] [facility] [place] [address] PCP - General Family Medicine 12/05/22 Sintia Gilbert LSW Projector Booth Operator 12/19/22 Susie Kohli PA-C [address] [address] [place] [address] Physician Founder Ceo & President Hematology/Oncology 12/23/22 Steve Chawla MD [address] [place] [address] Physician Hematology/Oncology 09/29/24 documented as of this encounter
[2025-05-02 16:10] VITALS: BP 113/89; PULSE 77; TEMP 36.7; O2SAT 97; BMI 41.6
--- NOTE | 2025-05-02 22:16 | ED.LOWEXI1 ---
HPI HPI - Extremity Injury (Lower) General Chief Complaint: Extremity Injury, Lower Stated Complaint: Lower Pain Time Seen by Provider: 05/02/25 19:37 Source: patient Mode of arrival: walk-in Limitations: no limitations History of Present Illness HPI Narrative: patient presents with right calf pain. Has an IUD in place and also smokes cigarettes. Concerned about DVT and so she came in. Mild swelling of the calf. Has chronic lymphedema of the left lower extremity from past lymphoma. No fever or injury. No fever or chills Related Data Home Medications ?Medication ?Instructions ?Recorded ?Confirmed No Known Home Medications 05/02/25 05/02/25 Allergies Allergy/AdvReac Type Severity Reaction Status Date / Time Penicillins Allergy Severe Anaphylaxis Verified 05/02/25 16:21 Opioid HPI Opioid Management Most Recent Pain and Opioid Data: Last Pain Scale 5 Today, 16:10 Review of Systems ROS Status of ROS 10 or more systems reviewed and unremarkable except as noted in history and below PFSH PFSH Social History Little interest or pleasure in doing things: not at all Feeling down, depressed, or hopeless: not at all Exam Constitutional Vital Signs, click to edit/add: Last Vital Signs Temp 98.1 F 05/02/25 16:10 Pulse 77 05/02/25 16:10 Resp 20 05/02/25 16:10 BP 113/89 05/02/25 16:10 Pulse Ox 97 05/02/25 16:10 O2 Del Method Room Air 05/02/25 16:10 Common normals: no apparent distress, average body habitus, oriented x3, no limitations, healthy appearing, alert and well nourished [facility] Common normals: normocephalic and head/scalp atraumatic Eye Common normals: PERRL and EOMs intact bilaterally Respiratory Common normals: normal respiratory effort, no retractions, no use of accessory muscles and clear to auscultation bilaterally Cardio Common normals: regular rate, regular rhythm, S1 normal heart sound and S2 normal heart sound Extremity Other: mild tenderness right calf. No definite swelling. No erythema Neuro Common normals: oriented x3, CN's II-XII intact bilaterally, moves all extremities and no focal motor deficits Psych Appearance: grossly normal Course Vital Signs Vital signs: Vital Signs Temperature 98.1 F 05/02/25 16:10 Pulse Rate 77 05/02/25 16:10 Respiratory Rate 20 05/02/25 16:10 Blood Pressure 113/89 05/02/25 16:10 Pulse Oximetry 97 05/02/25 16:10 Oxygen Delivery Method Room Air 05/02/25 16:10 Temperature 98.1 F 05/02/25 16:10 Pulse Rate 77 05/02/25 16:10 Respiratory Rate 20 05/02/25 16:10 Blood Pressure 113/89 05/02/25 16:10 Pulse Oximetry 97 05/02/25 16:10 Oxygen Delivery Method Room Air 05/02/25 16:10 MDM - Extremity Injury (Lower) MDM Narrative Medical decision making narrative: patient presents with right calf pain and concerned she may have DVT. Mild tenderness of the calf. no definite swelling. No erythema. doppler of the right leg neg for DVT. Patient informed and discharged home to follow up with her doctor Discharge Plan Discharge Chief Complaint: Extremity Injury, Lower Clinical Impression: Pain of right calf Patient Disposition: Home, Self-Care Prescriptions / Home Meds: No Action No Known Home Medications Print Language: Citizen Of [place] Instructions: Leg Pain (ED) Additional Instructions: use ibuprofen or similar for pain. follow up with your doctor this week for recheck Referrals: Ninfa Diaz DO [Primary Care Provider] - 1 week
== END 2025-05-02 22:34 | disposition home or self-care (01) ==
PROVIDERS: Emergency Provider Internal Medicine; PCP Family Medicine
DX: M79.661 Pain in right lower leg (principal); F17.210 Nicotine dependence, cigarettes, uncomplicated; Z97.5 Presence of (intrauterine) contraceptive device; Z85.72 Personal history of non-Hodgkin lymphomas; I89.0 Lymphedema, not elsewhere classified
CPT/HCPCS: 93971; 99284